=== PATIENT | male | born 1935 | race Caucasian/White ===

== ENCOUNTER 2016-10-18 19:41 | Inpatient (IN) | payer OTHER ==
--- NOTE | ~2016-10-18 | DS ---
Discharge Summary [facility] [address] [place]. [address] NAME: JIE CASILLAS : 37 STATUS : DIS IN PAT#: [id number] AGE: 81 ADM/REG DATE : 10/18/16 MR#: [id number] REPORT SERV DATE: 10/22/16 DICTATED BY: YURI DREW DATE: 10/21/16 REPORT STATUS : Draft TRANSCRIBED BY: OJ DATE: 10/21/16 ADMISSION DATE: 10/18/2016 DISCHARGE DATE: 10/21/2016 CONSULTATIONS: 1. Dr. Sims. 2. Pulmonology. PROCEDURES: Left cardiac catheterization performed by Dr. Sims. FINAL IMPRESSION: 1. Normal central aortic pressures. 2. 2+ aortic regurgitation through aortic valve stent. 3. Noncritical epicardial coronary artery disease. DISCHARGE DIAGNOSES: 1. Non-ST elevation myocardial infarction secondary to demand ischemia. 2. Acute chronic obstructive pulmonary disease exacerbation. 3. Healthcare-associated pneumonia. 4. Hypocalcemia. 5. Vitamin D deficiency. 6. Tremors. 7. Hypoalbuminemia. 8. Severe protein energy malnutrition. BMI of 18. 9. Status post transcatheter aortic valve replacement. 10.History of non-small cell lung cancer status post lung resection. 11.Cardiomyopathy with EF of 30%. 12.Hyperlipidemia. 13.Peripheral arterial disease. 14.Vocal cord dysfunction. DISCHARGE CONDITION: Stable. HISTORY OF PRESENT ILLNESS: In brief, this is a 81-year-old male, who presented to the hospital with worsening shortness of breath and generalized weakness. The patient was recently discharged from the hospital after treatment for community-acquired pneumonia. The patient reported he completed antibiotic treatment after discharge; however, continues to have worsening generalized weakness and progressive worsening shortness of breath on exertion and at rest. He decided to come to the emergency room for further evaluation. In the ER, found to have polymorphic breath sounds in the upper lung goldstein with decreased breath sounds in the lower lung goldstein. LABORATORY DATA: Significant for white cell count of 20.2, procalcitonin of 0.19, troponin of 0.19, lactate 1.5. Chest x-ray showed atelectasis and/or infiltrate in the left lung base similar to prior exam of 10/07/2016. An assessment of possible pneumonia and NSTEMI with COPD exacerbation was made in the ER, and the patient was admitted to the hospital Discharge Summary [address] [address] NAME: JIE CASILLAS : 37 STATUS : DIS IN PAT#: [id number] AGE: 81 ADM/REG DATE : 10/18/16 MR#: [id number] REPORT SERV DATE: 10/22/16 DICTATED BY: YURI DREW DATE: 10/21/16 REPORT STATUS : Draft TRANSCRIBED BY: JO DATE: 10/21/16 under the hospitalist's care for further management. For detailed HPI, please make reference to Dr. Lopez's next dictation on 10/19/2016. HOSPITAL COURSE: NSTEMI: Given the patient's known history of coronary artery disease, significantly elevated troponin, Cardiology was consulted, recommended a left heart catheterization. The patient underwent left heart catheterization that shows non- significant epicardial coronary artery disease. Etiology of significantly elevated troponin per Cardiology was secondary to demand ischemia, due to severe COPD exacerbation, as well as pneumonia. The patient was advised to continue Plavix, beta wilver at the time of discharge, and to follow up with Cardiology as an outpatient. COPD exacerbation: The patient was noted to have significant reduced breath sounds with significant wheezing. The patient was started on IV steroids and broad-spectrum antibiotics plus DuoNebs. The patient's shortness of breath continued to improve throughout the course of admission. The patient returned back to baseline of 2 L at the time of discharge. The patient was advised to continue oxygen therapy and follow up with Pulmonology as an outpatient. Pneumonia: The patient was recently treated for community-acquired pneumonia in the hospital, and at the time of discharge, the patient was placed on appropriate antibiotics. The patient reported completing antibiotics; however, the patient presented with worsening cough, shortness of breath with significant leukocytosis although procalcitonin was elevated, the patient was placed back on antibiotics. The patient's white cell count may have been due to recent steroid use. However, given the patient's significant worsening respiratory symptoms, the patient was continued on IV antibiotics throughout the course of admission. The patient's leukocytosis significantly reduced and improved throughout the course of admission. At the time of discharge, the patient was placed on broad-spectrum antibiotics. Pulmonology was consulted, recommended a CT scan. CT scan shows resolving pneumonia. The patient was advised to complete 7 days treatment of antibiotics and to follow up with Pulmonology as an outpatient. 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 No evidence of recurrence of disease. Hypocalcemia: The patient presented with significantly low serum calcium. The patient was started on IV calcium gluconate. PTH, phosphorus, and vitamin D were ordered. PTH was within normal limits, phosphorus was within normal limits, however, vitamin D was significantly low. Although, the patient has significant hypoalbuminemia, serum ionized calcium was significantly low for this patient which confirms that the patient has true hypocalcemia. Likely due to vitamin D deficiency. The patient was started on vitamin D supplements during this admission and advised to continue calcium. The patient was advised to follow up with primary care physician after 4 weeks of treatment to recheck both vitamin D and calcium level. Vitamin D deficiency: The patient's vitamin D was found to be significantly low. The patient was placed on vitamin D supplement, to continue followup as an outpatient. Discharge Summary [address] [address] NAME: JIE CASILLAS : 37 STATUS : DIS IN PAT#: [id number] AGE: 81 ADM/REG DATE : 10/18/16 MR#: [id number] REPORT SERV DATE: 10/22/16 DICTATED BY: YURI DREW DATE: 10/21/16 REPORT STATUS : Draft TRANSCRIBED BY: JO DATE: 10/21/16 Tremors: The patient presented with intentional tremors. The patient has a history of familial tremors. The patient's tremor not related to hypocalcemia. Despite repleting the patient's calcium, the patient's tremor continues to persist, etiology is likely due to familial tremors. The patient was advised to follow up with primary care physician as an outpatient. The patient was advised that if tremors persist or continue to get worse, the patient should follow up with Neurology, to have a Neurology evaluation as an outpatient. Cardiomyopathy with EF of 30%. The patient remained euvolemic throughout the course of this admission. No evidence of acute decompensated heart failure. Energy malnutrition: The patient was found to have significant low BMI of 18. Nutrition was consulted. Recommended high protein-calorie diet. The patient was advised to continue high protein-calorie diet as an outpatient. IMAGING: Impression: 1. Stable postsurgical change from previous left upper lobectomy. 2. Previously seen dense consolidation within the remaining left lung significantly improved with only mild remaining consolidation in the posterior basilar left lower lobe. 3. Areas of nodular consolidation at the left lung apex with associated cavitation of decrease in prominence since the prior examination with a medial component now measuring 10.18 mm and the lateral component now measuring 7 x 22 mm, previously 25 x 26 mm and 7 x 23 mm respectively. Next, there is also decrease in nodular consolidation in the medial basilar right middle lobe, now measuring 19 x 17 mm and previously measuring 31 x 21 mm. 4. Stable 4 x 4 noncalcified nodule in the inferior right upper lobe, centrally and stable 2 x 4 mm subsolid nodule in the lateral right middle lobe. 5. Stable nodular fibrocalcific scarring at the right lung apex. 6. Stable moderate to severe upper lobe predominant emphysematous changes in the lungs. 7. Stable aneurysmal dilatation of the ascending thoracic aorta up to 4.3 cm in diameter. The patient is again noted to be status post transcatheter aortic valve replacement. 8. Lung-RADS category 2, suggest followup CT scan of the chest in 12 months for further evaluation. DISCHARGE MEDICATION: 1. Prednisone taper. 2. Omnicef 300 mg p.o. b.i.d. 3. Plavix 75 mg p.o. daily. 4. Metoprolol 12.5 mg p.o. b.i.d. 5. Vitamin D of 50,000 units p.o. weekly. 6. Calcium gluconate 500 mg p.o. b.i.d. 7. Pravastatin 20 mg p.o. daily. 8. Albuterol 1 puff b.i.d. 9. Spiriva 1 puff b.i.d. 10.Advair 1 puff inhaler b.i.d. Discharge Summary [address] [address] NAME: JIE CASILLAS : 37 STATUS : DIS IN PAT#: [id number] AGE: 81 ADM/REG DATE : 10/18/16 MR#: [id number] REPORT SERV DATE: 10/22/16 DICTATED BY: YURI DREW DATE: 10/21/16 REPORT STATUS : Draft TRANSCRIBED BY: JO DATE: 10/21/16 DISCHARGE DISPOSITION: To discharge home. FOLLOWUP: To follow up with primary care physician as well as Cardiology and Pulmonology as an outpatient. DISCHARGE DIET: High-protein calorie diet. Greater than 40 minutes was used to prepare this patient's discharge, reconcile medication, advised the patient on discharge plans and followup. MIKAYLAO/JO Yuri Drew MD / [id number]
--- NOTE | ~2016-10-18 | CN ---
Consultation Report [facility] [address] [place]. [address] NAME: JIE CASILLAS : 37 STATUS : ADM IN PAT#: [id number] AGE: 81 ADM/REG DATE : 10/18/16 MR#: [id number] REPORT SERV DATE: 10/19/16 DICTATED BY: GODWIN WILSON DATE: 10/19/16 REPORT STATUS : Draft TRANSCRIBED BY: MODJennifer DATE: 10/19/16 CONSULTATION NOTE DATE OF CONSULTATION: 10/19/2016 CHIEF COMPLAINT: Shortness of breath and cough in a patient with recent pneumonia and very severe COPD. HISTORY OF PRESENT ILLNESS: Mr. Jie Casillas is a cachectic-appearing 81-year-old white male with a past medical history significant for very severe COPD with oxygen dependence, non-small cell lung cancer status post resection, vocal cord dysfunction, and ischemic cardiomyopathy. He presents to [facility]'s Emergency Room with complaints of worsening shortness of breath and cough of two or three days duration. It should be noted that Mr. Casillas was hospitalized recently two weeks ago as he was treated for community-acquired pneumonia. Mr. Casillas is followed by Dr. Jered West in our outpatient clinic for his pulmonary needs. He is on a pulmonary regimen of albuterol, Advair, and Spiriva of which he is compliant. He is on chronic oxygen supplementation at 2 L per nasal cannula. He states he quit smoking in 2008, prior to this time, he smoked two packs a day for a period of 50 years. He largely denies symptomatology related to obstructive sleep apnea. He describes his exercise tolerance as being quite limited, being only able to ambulate around his house before experiencing some degree of shortness of breath. Mr. Casillas was hospitalized as recently as 10/10/2016 when he was treated for symptoms related to a community-acquired pneumonia and his underlying lung disease. The patient received Rocephin and azithromycin as well as steroids with some improvement in his pulmonary status. After a five-day hospitalization, he eventually transitioned home. He states that he largely did well for the first five or six days, however, he began to have worsening of the aforementioned symptoms after that time. He did follow up with his senior network administrator who saw him on 10/16/2016. He was encouraged at that time to seek further medical assistance. He did eventually present to [facility]'s Emergency Room yesterday with shortness of breath and cough. Upon arrival, he was found to be normotensive and afebrile. He had an oxygenation of 95% on 4 L. Initial blood work revealed a white blood cell count of 20,200. Troponins were elevated at 0.19. BUN was 35 and creatinine was 1.35. He did undergo chest imaging which demonstrated atelectasis and/or infiltrate in the left base. This was compared to imaging performed 10/07/2016. Of note, the patient did have CT imaging on 10/06/2016 which demonstrated postsurgical changes as well as dense consolidation in the left lung. Mediastinal lymphadenopathy was appreciated well superimposed on severe emphysematous changes. The patient was given IV steroids as well as cefepime and vancomycin. The patient has had some improvement in his overall pulmonary status since arrival. For the aforementioned reasons, he has been referred to the Pulmonary Service for further Consultation Report [address] [place]. [address] NAME: JIE CASILLAS : 37 STATUS : ADM IN [facility]#: [id number] AGE: 81 ADM/REG DATE : 10/18/16 MR#: [id number] REPORT SERV DATE: 10/19/16 DICTATED BY: GODWIN WILSON DATE: 10/19/16 REPORT STATUS : Draft TRANSCRIBED BY: JO DATE: 10/19/16 assessment. Currently, Mr. Casillas's main pulmonary complaint is shortness of breath. This is worse on exertion and relieved by rest. He does have a cough that is producing some purulent sputum. He denies any overt wheezing in his chest. The patient does have complaints of hiccups which were almost intractable at this point. He has had no recent episodes of hemoptysis. He has had no focal changes. He denies any overt aspiration events. The patient does have known ischemic cardiomyopathy and was seen by Dr. Sims for these concerns. He has had an aortic valve replacement as well. He has issues with orthopnea. He currently denies any murmurs, angina, or palpitations. In regard to constitutional symptoms, he currently denies fever, chills, nausea, vomiting, chest pain, abdominal pain, or edema. PAST MEDICAL HISTORY: 1. 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 2. COPD with oxygen dependence. 3. Dyslipidemia. 4. Vocal cord dysfunction. 5. Ischemic cardiomyopathy. 6. Myocardial infarction. 7. Pneumonia. 8. Coronary artery disease. 9. Aortic valve replacement. 10.Peripheral arterial disease. 11.Thoracic aortic aneurysm. 12.Anxiety. PAST SURGICAL HISTORY: 1. Left upper lobe lobectomy. 2. Cholecystectomy. 3. Back surgery. 4. Vocal cord surgery. 5. Sinus surgery. 6. Tonsillectomy. 7. Vasectomy. SOCIAL HISTORY: The patient is with his currently at bedside. He previously served in the [employer]. TOBACCO/ALCOHOL: As previously mentioned, the patient quit smoking in 2008. Prior to this time, he smoked approximately two packs a day for a period of 50 years. He denies any recent alcohol or illicit drug use. Consultation Report [address] [address] NAME: JIE CASILLAS : 37 STATUS : ADM IN [facility]#: [id number] AGE: 81 ADM/REG DATE : 10/18/16 MR#: [id number] REPORT SERV DATE: 10/19/16 DICTATED BY: GODWIN WILSON DATE: 10/19/16 REPORT STATUS : Draft TRANSCRIBED BY: JO DATE: 10/19/16 MEDICATIONS: 1. Albuterol. 2. Aspirin 81 mg. 3. Bumex 1 mg. 4. Plavix 75 mg. 5. Advair. 6. Lopressor 25 mg. 7. Pravastatin 20 mg. 8. Prednisone 20 mg. 9. Spiriva. ALLERGIES: THE PATIENT HAS KNOWN ALLERGY TO SEPTRA. REVIEW OF SYSTEMS: A complete review of systems was performed with the pertinent positives and negatives contained within the body of the HPI. PHYSICAL EXAMINATION: VITAL SIGNS: Blood pressure is 104/59, heart rate is 111, T-max is 98.4, respiratory rate is 24, SpO2 is 97% on 2 L nasal cannula. GENERAL: The patient is a pleasant, well-nourished/well-developed male who is not currently exhibiting any signs of acute distress. Skin: Skin with appropriate texture and turgor. No rashes, lesions, or ulcers. Nails are clear without cyanosis or clubbing. HEENT: Head: Skull is normocephalic/atraumatic. Facies symmetric. No masses or lesions. Eyes: Sclera anicteric, conjunctiva pink without exudates. Extra ocular movements intact. Pupils are equal, round, reactive to light. Ears: Auricles and tragus without pain to palpation. Hearing is grossly intact. Nose: Bilateral nasal patency. Sinuses without tenderness upon palpation. Throat: Dentition. Lips, oral mucosa, tongue, palate, and pharynx pink and moist without lesions. Uvula rises equally on phonation. Tongue midline without deviation. NECK: Neck supple. Trachea midline. No cervical lymphadenopathy appreciated. THORAX/LUNGS: Thorax is symmetric with equal chest rise. The patient has multiple tattoos. There are few scattered rhonchi and wheezes throughout. CARDIOVASCULAR: Regular rate and rhythm. No murmurs, rubs, or gallops. Anterior chest without thrills, heaves, or lifts. ABDOMEN: Soft. Non-distended, non-tender. Active bowel sounds in all four quadrants. No hepatosplenomegaly noted. PERIPHERAL VASCULAR: No edema. No varicosities, stasis changes, open sores, ulcerations, or phlebitis. 2+ pulses in radial and dorsalis pedis. MUSCULOSKELETAL: Full AROM and PROM in all joints. No evidence of erythema, deformity, or crepitus. NEUROLOGIC: CN II - XII grossly intact. Good muscle bulk and tone bilaterally. Strength 5/5 throughout. PSYCHIATRIC: Patient demonstrates good judgment and insight. Pt is A&O x 3. Consultation Report [address] [address] NAME: JIE CASILLAS : 37 STATUS : ADM IN [facility]#: [id number] AGE: 81 ADM/REG DATE : 10/18/16 MR#: [id number] REPORT SERV DATE: 10/19/16 DICTATED BY: GODWIN WILSON DATE: 10/19/16 REPORT STATUS : Draft TRANSCRIBED BY: MODL DATE: 10/19/16 ACCESSORY DATA: Reveals procalcitonin is 0.16, potassium is 3.4. Arterial blood gas on 2 L reveals pH 7.47, PaCO2 of 40, PaO2 of 94, and a bicarb of 28.5. Chest x-ray reveals atelectasis and/or infiltrate in the left lung base which is similar to the previous exam from 10/07/2016. IMPRESSION: 1. Non-ST elevation myocardial infarction. 2. Recent pneumonia. 3. Very severe chronic obstructive pulmonary disease with oxygen dependence. 4. History of non-small lung cancer-squamous stage I status post resection. 5. History of vocal cord dysfunction. 6. Ischemic cardiomyopathy with left ventricular ejection fraction that is estimated to be 30 to 35. PLAN: 1. The patient has appropriately been placed on broad-spectrum antibiotics. He has had negative procalcitonin x2. We will check a sputum for Gram stain and culture. It may be reasonable at this time to deescalate antibiotic coverage. We should likely check his swallow function before discharge. It may be reasonable to check his immunoglobulin assays as well. 2. In regard to the patient's severe COPD, we will place him on a full armamentarium of nebulized medications. We will recommend outpatient pulmonary rehab as well. The aforementioned impression and plan has been discussed with Dr. Marie who will follow further recommendations. We thank you for this consult and look forward to participating in the care of Mr. Jie Casillas. GBS/MODL Godwin Wilson PA-C / [id number] CC: MD Omar Mancera M.D.
--- NOTE | ~2016-10-18 | OP ---
Record Of Operation [facility] [address] [place]. [address] NAME: JIE CASILLAS : 37 STATUS : ADM IN PAT#: [id number] AGE: 81 ADM/REG DATE : 10/18/16 MR#: [id number] REPORT SERV DATE: 10/20/16 DICTATED BY: LEE ANN SIMS DATE: 10/20/16 REPORT STATUS : Draft TRANSCRIBED BY: MODL DATE: 10/20/16 DATE OF PROCEDURE: 10/20/2016 PROCEDURE: Supravalvular aortography, coronary angiography. INDICATIONS: Non-ST elevation myocardial infarction. LAYBOY OPERATOR: Lee Ann Sims M.D., FORMERLY [facility], [facility]. PROCEDURE NOTE: After informed consent obtained, the patient was brought to the catheterization laboratory in the fasting state with renal prophylaxis protocol initiated. Routine sterile prep and drape performed. Monitored sedation was administered. 2% Xylocaine with epinephrine was infiltrated to the left groin. After fluoroscopy, the right groin demonstrated a stent in the right common femoral artery. A 6-Micronesian sheath was placed in the left femoral artery following anterior wall puncture. A 6-Micronesian straight pigtail catheter to the aortic valve and supravalvular aortography was performed in [place] projection. The catheter was removed. A 6-Micronesian JL5 and then JR4 diagnostic catheters were used to cannulate coronary artery ostia with angiography of each vessel performed. All catheters were removed. Left common femoral arterial sheath side port angiography was performed followed by ProGlide closure of the common femoral puncture site. The patient was taken to the recovery area in satisfactory condition, without immediate complication, anticipating administration of Ancef. TOTAL CONTRAST: 115 mL Isovue-370. TOTAL X-RAY: 211 mGy. FINDINGS: HEMODYNAMICS: 1. Central aortic pressure 120/60 mmHg, mean 80 mmHg. 2. Supravalvular aortography: Well-seated aortic valve stent is seen with 2+ aortic regurgitation. 3. Left main coronary artery: Medium caliber, short vessel without stenosis. 4. LAD: Medium caliber vessel reaching the apex of the heart. Several small diagonal branches are seen. Luminal irregularities identified throughout the LAD, particularly in a small terminal LAD. 5. Circumflex: Medium caliber, angiographically nondominant vessel giving rise to bifurcating obtuse marginal branch. Luminal irregularities identified in the LAD system, particularly the second obtuse marginal branch. 6. Right coronary artery medium caliber, angiographically dominant vessel terminating as posterolateral and posterior descending arteries. Luminal irregularities identified in the right coronary arteries only. FINAL IMPRESSION: 1. Normal central aortic pressures. Record Of Operation [facility] [place]. [address] NAME: JIE CASILLAS : 37 STATUS : ADM IN PAT#: [id number] AGE: 81 ADM/REG DATE : 10/18/16 MR#: [id number] REPORT SERV DATE: 10/20/16 DICTATED BY: LEE ANN SIMS DATE: 10/20/16 REPORT STATUS : Draft TRANSCRIBED BY: MODL DATE: 10/20/16 2. 2+ aortic regurgitation through aortic valve stent valve. 3. Noncritical epicardial coronary artery disease. /MODL Lee Ann Sims M.D. / [id number] CC: MD Omar Bosch M.D.
--- NOTE | ~2016-10-18 | HP ---
History And Physical [id number] [place]. [address] NAME: JIE CASILLAS : 39 STATUS : [facility]#: [id number] AGE: 81 ADM/REG DATE : 10/18/16 MR#: [id number] REPORT SERV DATE: 10/19/16 DICTATED BY: ERI SCOTT DATE: 10/18/16 REPORT STATUS : Draft TRANSCRIBED BY: JO DATE: 10/18/16 DATE OF ADMISSION: 10/18/2016 CHIEF COMPLAINT: Shortness of breath and weakness. HISTORY OF PRESENT ILLNESS: The patient is a 81-year-old male with past medical history of COPD, O2 dependent; has ischemic cardiomyopathy with CHF, ejection fraction 30%; lung cancer history with prior surgery; recent type 2 demand ischemia, followed by Dr. Sims; chronic hypoxia, followed by Dr. West; and protein-calorie malnutrition; who presents after recent treatment for community-acquired pneumonia. Upon discharge, the patient reports that he was actually doing well and much improved after completing antibiotic course, was actually in good spirits but shortly after complete antibiotic course about four to five days ago, started having worsening of symptoms of just generalized fatigue and symptoms greatly started to decline after he completed his steroid 40 mg burst pack. The patient became weak enough that he was actually recommended by Dr. Sims when he went to clinic for re-evaluation; however, believed that symptoms were secondary to his exercise therapy with PT and OT. However, when the patient's weakness did not quite improve, she decided to bring him back. Upon arrival, the patient was noted to be tachycardic, tachypneic, increased O2 requirements, hypertensive, symptoms of shortness of breath, appeared to be fairly constant, moderate severity, with no crushing or burning pressure pain but did have occasional tightness, which was improved after breathing treatments. No nausea, vomiting but did have just generalized weakness no fever, chills currently. The symptoms were worsened with exertion, relieved by rest, and symptoms are still currently present but significantly better. The patient did have appointment to follow up with Dr. West but was unable to get appointment earlier, and his family is requesting Dr. West or partner for further evaluation. REVIEW OF SYSTEMS: GENERAL: No fevers or chills currently. EYES: No eye pain or visual changes. ENT: No sinus drainage or sore throat. NEURO: No headache or confusion. SKIN: Does have thin skin with bruising. RESPIRATORY: Does have shortness of breath with cough, but this is improved sputum production than prior. CV: Occasional chest discomfort with tightness, but this is improved. No palpitations but tachycardic. GI: No nausea, vomiting, diarrhea. : No dysuria or hematuria. MUSCULOSKELETAL: No myalgias, arthralgias but does have atrophy of muscles. ENDO: Does have increased fatigue but no polyuria. HEME: No bleeding. Does have bruising with Plavix. IMMUNOLOGIC: No rhinorrhea. PSYCH: No anxiety or confusion. PAST MEDICAL HISTORY: Lung cancer, squamous cell, variations, left upper lung, status post History And Physical [address] [address] NAME: JIE CASILLAS : 37 STATUS : [facility]#: [id number] AGE: 81 ADM/REG DATE : 10/18/16 MR#: [id number] REPORT SERV DATE: 10/19/16 DICTATED BY: ERI SCOTT DATE: 10/18/16 REPORT STATUS : Draft TRANSCRIBED BY: JO DATE: 10/18/16 surgery, followed by Dr. Elaine; COPD; pneumonia with recent admission for community- acquired; coronary disease, followed by Dr. Sims; aortic valve replacement with tissue valve; vocal cord dysfunction, multiple surgeries; anemia; elevated immunoglobulins; tremor since in-service; elevated cholesterol; peripheral arterial disease with carotid disease; systolic heart failure, EF 30%; bilateral hydrocele; panic attacks; anxiety; congenital venous malformation of the brain; chronic thoracic aortic aneurysm, 4.7 cm; bacteremia in the past after chemo for lung cancer. Has had apparently significant renal dysfunction after antibiotic course in the past and very guarded about antibiotic usage. It appears likely Septra may be confounding component. PAST SURGICAL HISTORY: Tissue valvular replacement in 2015, left upper lung resection, vasectomy, vocal cord surgery, and multiple back surgeries. ALLERGIES: TO BACTRIM, AND UNKNOWN CHEMO DRUGS. SOCIAL HISTORY: Quit smoking in 2008 but was prior 2 pack per day smoker. Prior alcohol history. , accompanied by . from 1955 to 1960. FAMILY HISTORY: Seizures. HOME MEDICATIONS: Ventolin, Artificial Tears, aspirin, Zithromax, Bumex, Omnicef, Plavix, Advair, p.r.n. metoprolol, Pravachol, prednisone, [place], Spiriva. PHYSICAL EXAMINATION: Vital signs: The patient's blood pressure 117/66; temperature 98.5; pulse 114; respirations initially 22, down to 17; O2 saturations 95% on 4 L. GENERAL: No acute distress currently but fairly frail with temporal wasting but calm and pleasant, talkative, joking manner. EYES: No scleral icterus. EOMI. ENT: Nares patent. Dry mucous membranes. NECK: No JVD but supple respiratory polyphonic breath sounds in upper lung goldstein. Mildly decreased in the lower lung goldstein. CHEST: Equal chest expansion. No increased AP diameter. CV: Tachycardic. No rubs or gallops. Mild systolic ejection murmur. No pedal edema. No JVD deferred GI: Soft, nontender, nondistended. Bowel sounds positive. MUSCULOSKELETAL: Moves all extremities x4 but does have notable weakness in the lower extremities, approximately 4/5; upper flow upper extremities 5/5, equal field crew chief strength. SKIN: Warm and dry. Multiple tattoos on the anterior chest wall. The patient does have clubbing of nails on hand digits. LYMPH: No cervical or supraclavicular lymphadenopathy. HEME: No bleeding but does have old bruising sites on hand. NEURO: Alert and oriented. Does aside does have atrophy of muscle groups and weakness in the lower extremities greater than upper extremities with symmetrical vocal misbah. Symmetrical smile. Sensation is still grossly intact. PSYCH: Appropriate mood and affect. LABORATORY DATA: CBC: WBC count 20.2, H and H 13.4 and 41.5. INR still pending. Platelets History And Physical [address] [id number] NAME: JIE CASILLAS : 39 STATUS : [facility]#: [id number] AGE: 81 ADM/REG DATE : 10/18/16 MR#: [id number] REPORT SERV DATE: 10/19/16 DICTATED BY: ERI SCOTT DATE: 10/18/16 REPORT STATUS : Draft TRANSCRIBED BY: MODL DATE: 10/18/16 251. Lactate 1.5. CMP: Procalcitonin 0.19, sodium 138, potassium 3.8, bicarb 33, chloride 92, BUN and creatinine 35 and 1.33, glucose of 116. Calcium 5.9. Troponin 0.19. LFTs within normal limits. Alkaline phosphatase 62. A prior troponin was 1.90 at recent hospitalization. EKG: Sinus tachycardia with occasional PVCs, right bundle, T-wave inversions in V2 to V6. The patient did have T-wave inversions in V1 through V6 in prior EKG. ASSESSMENT AND PLAN: 1. Healthcare-associated pneumonia. 2. Congestive heart failure with ischemic cardiomyopathy, ejection fraction of 30%. 3. Lung cancer history. 4. Chronic obstructive pulmonary disease. 5. Type 2 demand troponin elevation. 6. Ouapi-fs-knszacq hypoxia, O2 dependent. 7. Possible sepsis. 8. Protein-calorie malnutrition. 9. Hiccups. 10.Tremors. 11.Hypocalcemia. PLAN: 1. For HCAP, the patient has completed antibiotic course but still having occasional symptoms. We will broaden antibiotic course. WBC is elevated; however, the patient has been on steroids with a recent five-day burst of prednisone. Has just completed Omnicef today. We will give a one-time dose of vancomycin and cefepime will continue. Family very guarded about starting any possible nephrotoxic medications, particularly vancomycin, due to the patient's prior history of failure and is requesting Dr. West's evaluation and guidance before continuing after first dose. I believe the patient's decrease in respiratory status may be secondary to steroid withdrawal. We will check a.m. cortisol level. May require a slightly longer steroid taper. We will check labs to confirm a true HCAP coverage, although the patient does have leukocytosis, tachycardia, tachypnea, and still has slight sputum production. We will request guidance from pulmonary expertise. 2. CHF history with EF 30%. The patient is clinically volume depleted without JVD and has had a decreased p.o. intake over the last week, likely secondary from recent sepsis and community-acquired pneumonia. Gentle IV fluids given for volume resuscitation. Repeat chest x-ray in a.m. Holding parameters on fluids, only additional 1 to 1-1/2 L. 3. Lung cancer, squamous cell history. Follows with Dr. Elaine. 4. COPD, 2-1/2 L at home increased to 4 L currently to treat pneumonia. 5. Type 2 demand ischemia with T-wave inversions. Follows with Dr. Sims. We will ask Dr. Sims for further guidance. No active cardiac-defined chest pain per patient. 6. [place] hypoxia, O2 and DuoNebs. 7. Possible sepsis. Although the patient does have leukocytosis, there are no bands. This is possible secondary to steroids but does have additionally tachycardia, tachypnea, and recent pneumonia. Postop orders set. Follow lactate as lactate is History And Physical [address] [address] NAME: JIE CASILLAS : 39 STATUS : ADM IN PAT#: [id number] AGE: 81 ADM/REG DATE : 10/18/16 MR#: [id number] REPORT SERV DATE: 10/19/16 DICTATED BY: ERI SCOTT DATE: 10/18/16 REPORT STATUS : Draft TRANSCRIBED BY: MODL DATE: 10/18/16 currently within normal limits. We will monitor per protocol. 8. Protein-calorie malnutrition. Check albumin, pre-albumin, and nutrition consult. 9. Hiccups, p.r.n. medications. 10.Tremors are essential. Has had this since he has been service. We will monitor. 11.Hypocalcemia noted incidentally on imaging. We will add ionized calcium. Workup, pending results from ionized calcium. All questions answered with the patient family. Disposition, pending results and response from above. DDN/MODL Eri Scott MD / [id number]
[2016-10-18 16:48] LABS: BASOPHILS 0 %; BASOPHILS ABSOLUTE 0.01 10/3/uL (0.0-0.16); EOSINOPHILS 0.3 %; EOSINOPHILS ABSOLUTE 0.07 10/3/uL (0.0-0.53); IMMATURE GRANULOCYTES 0.3 %; IMMATURE GRANULOCYTES ABSOLUTE 0.07 10/3/uL (0.0-0.11); LYMPHOCYTES 5.5 %; LYMPHOCYTES ABSOLUTE 1.12 10/3/uL (0.67-4.30); MEAN CORPUS HGB CONC 32.3 g/dL (32.0-36.0); MEAN CORPUSCULAR HEMOGLOB 30.1 pg (26.0-34.0); MEAN CORPUSCULAR VOLUME 93.3 fL (80-100); MEAN PLATELET VOLUME 11.9 fL (9.2-13.0); MONOCYTES 4.8 %; MONOCYTES ABSOLUTE 0.97 10/3/uL (0.21-1.20); NEUTROPHILS 89.1 %; NEUTROPHILS ABSOLUTE 17.95 10/3/uL (2.02-8.40); PLATELET COUNT 251 10/3/uL (150-400); RBC DISTRIBUTION WIDTH 14.4 % (12.0-16.0)
[2016-10-18 16:49] LABS: HEMATOCRIT 41.5 % (40.0-51.0); HEMOGLOBIN 13.4 g/dL (13.6-17.8); MANUAL DIFF NO %; RED CELL COUNT 4.45 10/6/uL (4.7-6.1); WHITE BLOOD CELLS 20.2 10/3/uL (4.5-10.5)
[2016-10-18 17:05] LABS: BUN (BLOOD UREA NITROGEN) 35 MG/DL (6-23); CHLORIDE, SERUM 92 MMOL/L (96-112); CO2 (CARBON DIOXIDE) 33 MMOL/L (24-34); CREATININE 1.33 MG/DL (0.70-1.30); GFR AFRICAN AMERICAN 59 ML/MIN (>=60); GFR NON AFRICAN AMERICAN 50 ML/MIN (>=60); POTASSIUM, SERUM 3.8 MMOL/L (3.5-5.3); SGPT(ALT) 59 U/L (5-65); SODIUM, SERUM 138 MMOL/L (135-148); TOTAL BILIRUBIN 0.9 MG/DL (0-1.2); TOTAL PROTEIN 7.5 G/DL (6.0-8.5)
[2016-10-18 17:07] LABS: A/G RATIO 0.7 (0.7-1.9); ALKALINE PHOSPHATASE 62 U/L (45-117); CALCIUM, SERUM 5.9 MG/DL (8.5-10.4); GLOBULIN 4.5 G/DL (2.5-4.1); GLUCOSE, SERUM 116 MG/DL (60-99)
[2016-10-18 17:08] LABS: SGOT(AST) 27 U/L (5-40); TROPONIN I 0.19 NG/ML (<0.05)
[2016-10-18 17:09] LABS: LACTATE 1.5 MMOL/L (0.3-2.4)
[2016-10-18 17:22] LABS: PROCALCITONIN 0.19 ng/mL (<0.5)
[~2016-10-18 19:41] MED LIST: 8 HOUR650 MG PO; ADVAIR INH; ADVAIR250 INH; ALBUTEROL NEBULIZER; ALBUTEROL0.083 % INH; ALEVE220 MG PO; AMIT25 PO; ASAB PO; AYR SALINE NAS; BUM1 PO; COZ25 PO; DELSYM30 MG/5 ML PO; L20 PO; LEVAQUIN750 MG PO; LOP25 PO; LORTAB 5 PO; NYQUIL OTC PO; OCEAN NAS; OMNICEF300 PO; P10 PO; P20 PO; PLAVIX PO; PR25 PO; PRAVAC PO; PROAIR HFA INH; PROVENT20 INH; PROVENTSOL INH; SPIRIVA INH; TEARS PURE OPH; VENTOLIN HFA INH; VITC500 PO; X5 PO; ZITH250 PO; ZOCOR10 PO
[2016-10-18 20:11] LABS: INTERNATIONAL NORMAL RATI 1.1 UNITS (-); PARTIAL THROMBO TIME 25.9 SEC (22.5-37.2); PROTIME (NOT ORD) 14.1 SEC (12.0-14.5)
[2016-10-18 21:00] LABS: WBC (NOT ORDERED) (RFLEX) 0 (0-5)
[2016-10-18 21:14] LABS: ASCORBIC ACID (UR NOT ORDER) NEG (NEG); BILIRUBIN, URINE NEGATIVE (NEG); ER URINALYSIS TAT 0 Hrs 15 Mins; KETONE, URINE TRACE MG/DL (NEG); LEUKOCYTE ESTERASE(NOT OR NEG (NEG); NITRITE (URINE) NEG (NEG)
[2016-10-19 06:10] LABS: BE (BASE EXCESS) 4.6 MEQ/L (0 +/- 2.5); CARBOXYHEMOGLOBIN 0.7 % (0-3); DEVICE NC; HCO3 (ACTUAL BICARBONATE) 28.5 MEQ/L (23-27); INSTRUMENT SERIAL # 8083; METHEMOGLOBIN 0.3 % (0-3); O2 CONTENT 17.7 VOL% (18-24); OPERATOR ID 31061; PCO2 (CO2 TENSION) 40 MMHG (35-45); PO2 (O2 TENSION) 94 MMHG (79-93); SAMPLE Arterial; pH 7.47 (7.37-7.43)
[2016-10-19 07:10] LABS: BUN (BLOOD UREA NITROGEN) 35 MG/DL (6-23); CHLORIDE, SERUM 98 MMOL/L (96-112); CO2 (CARBON DIOXIDE) 30 MMOL/L (24-34); CREATININE 1.27 MG/DL (0.70-1.30); GFR AFRICAN AMERICAN 62 ML/MIN (>=60); GFR NON AFRICAN AMERICAN 53 ML/MIN (>=60); POTASSIUM, SERUM 3.4 MMOL/L (3.5-5.3); SGOT(AST) 22 U/L (5-40); SGPT(ALT) 44 U/L (5-65); SODIUM, SERUM 140 MMOL/L (135-148); TOTAL BILIRUBIN 0.7 MG/DL (0-1.2)
[2016-10-19 07:11] LABS: A/G RATIO 0.7 (0.7-1.9); ALBUMIN 2.3 G/DL (3.5-5.0); ALKALINE PHOSPHATASE 47 U/L (45-117); CALCIUM, SERUM 5.4 MG/DL (8.5-10.4); GLOBULIN 3.5 G/DL (2.5-4.1); GLUCOSE, SERUM 203 MG/DL (60-99); TOTAL PROTEIN 5.8 G/DL (6.0-8.5); TROPONIN I 0.17 NG/ML (<0.05)
[2016-10-19 07:46] LABS: PROCALCITONIN 0.16 ng/mL (<0.5)
[2016-10-19 07:58] LABS: ALLENS TEST Pos; BE (BASE EXCESS) 6.9 MEQ/L (0 +/- 2.5); CARBOXYHEMOGLOBIN 1.1 % (0-3); HCO3 (ACTUAL BICARBONATE) 29.8 MEQ/L (23-27); HEMOBLOGIN CONTENT 13.2 G/DL (14-18); INSTRUMENT SERIAL # 8087; METHEMOGLOBIN 0.4 % (0-3); OPERATOR ID 14335; PCO2 (CO2 TENSION) 37 MMHG (35-45); PO2 (O2 TENSION) 102 MMHG (79-93); SAMPLE Arterial; pH 7.53 (7.37-7.43)
[2016-10-19 08:19] LABS: BASOPHILS 0 %; EOSINOPHILS 0 %; IMMATURE GRANULOCYTES 0.3 %; IMMATURE GRANULOCYTES ABSOLUTE 0.02 10/3/uL (0.0-0.11); LYMPHOCYTES 3.3 %; LYMPHOCYTES ABSOLUTE 0.26 10/3/uL (0.67-4.30); MEAN CORPUS HGB CONC 32.9 g/dL (32.0-36.0); MEAN CORPUSCULAR HEMOGLOB 30.6 pg (26.0-34.0); MONOCYTES 0.8 %; MONOCYTES ABSOLUTE 0.06 10/3/uL (0.21-1.20); NEUTROPHILS 95.6 %; NEUTROPHILS ABSOLUTE 7.56 10/3/uL (2.02-8.40); WHITE BLOOD CELLS 7.9 10/3/uL (4.5-10.5)
[2016-10-19 08:20] LABS: HEMATOCRIT 31.9 % (40.0-51.0); HEMOGLOBIN 10.5 g/dL (13.6-17.8); MANUAL DIFF NO %; PLATELET COUNT 164 10/3/uL (150-400); RED CELL COUNT 3.43 10/6/uL (4.7-6.1)
[2016-10-19 13:32] LABS: PHOSPHORUS, SERUM 4.5 MG/DL (2.5-4.5)
[2016-10-19 16:31] LABS: POTASSIUM, SERUM 4.4 MMOL/L (3.5-5.3); TROPONIN I 0.2 NG/ML (<0.05)
[2016-10-19 21:30] LABS: INTACT PTH (ICMA) 59.3 PG/ML (10.0-65.0)
[2016-10-20 05:47] LABS: BASOPHILS 0 %; EOSINOPHILS 0 %; HEMOGLOBIN 8.8 g/dL (13.6-17.8); IMMATURE GRANULOCYTES 0.2 %; IMMATURE GRANULOCYTES ABSOLUTE 0.02 10/3/uL (0.0-0.11); LYMPHOCYTES 2.4 %; LYMPHOCYTES ABSOLUTE 0.28 10/3/uL (0.67-4.30); MEAN CORPUS HGB CONC 33.1 g/dL (32.0-36.0); MEAN CORPUSCULAR HEMOGLOB 30.8 pg (26.0-34.0); MEAN PLATELET VOLUME 10.8 fL (9.2-13.0); MONOCYTES 2.1 %; MONOCYTES ABSOLUTE 0.24 10/3/uL (0.21-1.20); NEUTROPHILS 95.3 %; NEUTROPHILS ABSOLUTE 11.06 10/3/uL (2.02-8.40); PLATELET COUNT 148 10/3/uL (150-400); RED CELL COUNT 2.86 10/6/uL (4.7-6.1)
[2016-10-20 05:48] LABS: HEMATOCRIT 26.6 % (40.0-51.0); MANUAL DIFF NO %; WHITE BLOOD CELLS 11.6 10/3/uL (4.5-10.5)
[2016-10-20 05:59] LABS: A/G RATIO 0.7 (0.7-1.9); ALBUMIN 2.1 G/DL (3.5-5.0); ALKALINE PHOSPHATASE 37 U/L (45-117); BUN (BLOOD UREA NITROGEN) 34 MG/DL (6-23); CALCIUM, SERUM 6.2 MG/DL (8.5-10.4); CHLORIDE, SERUM 105 MMOL/L (96-112); CO2 (CARBON DIOXIDE) 24 MMOL/L (24-34); GFR AFRICAN AMERICAN 74 ML/MIN (>=60); GFR NON AFRICAN AMERICAN 64 ML/MIN (>=60); GLOBULIN 3.1 G/DL (2.5-4.1); GLUCOSE, SERUM 212 MG/DL (60-99); POTASSIUM, SERUM 3.7 MMOL/L (3.5-5.3); SGOT(AST) 17 U/L (5-40); SGPT(ALT) 33 U/L (5-65); SODIUM, SERUM 141 MMOL/L (135-148); TOTAL BILIRUBIN 0.3 MG/DL (0-1.2); TOTAL PROTEIN 5.2 G/DL (6.0-8.5)
[2016-10-20 06:00] LABS: TROPONIN I 0.21 NG/ML (<0.05)
[2016-10-21 05:57] LABS: BASOPHILS 0 %; EOSINOPHILS 0 %; HEMATOCRIT 26.2 % (40.0-51.0); HEMOGLOBIN 8.6 g/dL (13.6-17.8); IMMATURE GRANULOCYTES 0.3 %; IMMATURE GRANULOCYTES ABSOLUTE 0.02 10/3/uL (0.0-0.11); LYMPHOCYTES 4.6 %; LYMPHOCYTES ABSOLUTE 0.31 10/3/uL (0.67-4.30); MEAN CORPUS HGB CONC 32.8 g/dL (32.0-36.0); MEAN CORPUSCULAR HEMOGLOB 30.6 pg (26.0-34.0); MEAN CORPUSCULAR VOLUME 93.2 fL (80-100); MEAN PLATELET VOLUME 11.2 fL (9.2-13.0); MONOCYTES 5.1 %; MONOCYTES ABSOLUTE 0.35 10/3/uL (0.21-1.20); NEUTROPHILS ABSOLUTE 6.12 10/3/uL (2.02-8.40); PLATELET COUNT 150 10/3/uL (150-400); RBC DISTRIBUTION WIDTH 14.3 % (12.0-16.0); RED CELL COUNT 2.81 10/6/uL (4.7-6.1)
[2016-10-21 05:58] LABS: MANUAL DIFF NO %; WHITE BLOOD CELLS 6.8 10/3/uL (4.5-10.5)
[2016-10-21 06:11] LABS: ALBUMIN 2.1 G/DL (3.5-5.0); CHLORIDE, SERUM 106 MMOL/L (96-112); CO2 (CARBON DIOXIDE) 26 MMOL/L (24-34); CREATININE 1.01 MG/DL (0.70-1.30); GFR AFRICAN AMERICAN 82 ML/MIN (>=60); GFR NON AFRICAN AMERICAN 70 ML/MIN (>=60); GLUCOSE, SERUM 185 MG/DL (60-99); POTASSIUM, SERUM 3.8 MMOL/L (3.5-5.3); SODIUM, SERUM 143 MMOL/L (135-148)
[2016-10-21 06:13] LABS: BUN (BLOOD UREA NITROGEN) 28 MG/DL (6-23); CALCIUM, SERUM 6.4 MG/DL (8.5-10.4); PHOSPHORUS, SERUM 3.1 MG/DL (2.5-4.5)
[2016-10-21] MEDS ORDERED: P5 (12:04)
[2016-10-21] MEDS ORDERED: OMNICEF300 PO (12:05)
[2016-10-21] MEDS ORDERED: SPIRIVA INH (12:06)
[2016-10-21] MEDS ORDERED: VITD PO (12:06)
[2016-10-21] MEDS ORDERED: CALGLUCTAB PO (12:07)
[2016-10-23 17:05] LABS: IMMUNOGLOBULIN G SUBCLASS 1 341 mg/dL (405-1011); IMMUNOGLOBULIN G SUBCLASS 2 123 mg/dL (169-786); IMMUNOGLOBULIN G SUBCLASS 3 29 mg/dL (11-85); IMMUNOGLOBULIN G SUBCLASS 4 17 mg/dL (3-201)
== END 2016-10-21 14:27 | disposition home or self-care (01) | DRG 190 ==
LOC: ER 19:41 → 2SO 20:20
PROVIDERS: Hospitalist; Internal Medicine Cardiovascular Disease; Nurse Practitioner; Physician Assistant Medical; Student in an Organized Health Care Education/Training Program
PROC: 4A023N7 Measurement of Cardiac Sampling and Pressure, Left Heart, Percutaneous Approach (ICD-10-PCS; principal; 2016-10-20)
PROC: B2151ZZ Fluoroscopy of Left Heart using Low Osmolar Contrast (ICD-10-PCS; 2016-10-20)
PROC: B2111ZZ Fluoroscopy of Multiple Coronary Arteries using Low Osmolar Contrast (ICD-10-PCS; 2016-10-20)
DX: J44.1 Chronic obstructive pulmonary disease with (acute) exacerbation (principal); J18.1 Lobar pneumonia, unspecified organism; E43 Unspecified severe protein-calorie malnutrition; I24.8 Other forms of acute ischemic heart disease; I50.22 Chronic systolic (congestive) heart failure; E83.51 Hypocalcemia; Z99.81 Dependence on supplemental oxygen; Z68.1 Body mass index [BMI] 19.9 or less, adult; J44.0 Chronic obstructive pulmonary disease with (acute) lower respiratory infection; N18.3 Chronic kidney disease, stage 3 (moderate); D64.9 Anemia, unspecified; I25.5 Ischemic cardiomyopathy; E78.00 Pure hypercholesterolemia, unspecified; I73.9 Peripheral vascular disease, unspecified; G25.0 Essential tremor; F41.9 Anxiety disorder, unspecified; R06.6 Hiccough; F17.200 Nicotine dependence, unspecified, uncomplicated; R25.1 Tremor, unspecified; I25.10 Atherosclerotic heart disease of native coronary artery without angina pectoris; I35.1 Nonrheumatic aortic (valve) insufficiency; Y95 Nosocomial condition; E55.9 Vitamin D deficiency, unspecified; Z95.2 Presence of prosthetic heart valve; Z92.21 Personal history of antineoplastic chemotherapy; Z85.118 Personal history of other malignant neoplasm of bronchus and lung; Z98.890 Other specified postprocedural states
CPT/HCPCS: 36600; 71010; 71250; 80053; 80069; 81001; 82306; 82330; 82533; 82784; 82787; 82787-59; 82805; 83605; 83735; 83970; 84075; 84100; 84132; 84134; 84145; 84484; 85025; 85610; 85730; 87040; 87070; 87205; 87449; 92610-GN; 93005; 93454; 93567; 94640; 96374; 96375; 97116-GP; 97161-GP; 97166-GO; 99152; 99153; 99285; A9270-GY; C1760; C1769; C1894; J0610; J0690; J0692; J2250; J2920; J2930; J3010; J3370; Q9967